=== PATIENT | male | born 1945 | race Asian ===

== ENCOUNTER 2020-03-20 16:42 | Inpatient (IN) ==
[2020-03-20 17:25] LABS: Basophils % 0.3 %; Hematocrit 46.2 % (37.5-50.1); Hemoglobin 14.9 g/dL (12.9-16.9); Immature Granulocytes % 0.3 % (0-4); Lymphocytes # 0.4 K/mcL (0.6-4.6); Lymphocytes % 11.5 %; Mean Corpuscular HGB Conc 32.3 g/dL (31.6-35.5); Mean Corpuscular Hemoglobin 27.7 pg (28.0-33.3); Mean Platelet Volume 10.2 fL (9.4-12.4); Monocytes # 0.3 K/mcL (0.0-1.3); Monocytes % 10.2 %; Neutrophils # 2.5 K/mcL (1.6-8.9); Platelet Count 230 K/mcL (140-400); Red Blood Count 5.37 M/mcL (4.19-5.50); Red Cell Distribution Width 12.8 % (11.5-14.5); Segmented Neutrophils % 77.7 %; White Blood Count 3.2 K/mcL (4.3-11.1)
[2020-03-20 17:35] LABS: VBG HCO3 24 mEq/L (21-27); VBG PCO2 42 mmHg (41-51); VBG PH 7.36 pH Units (7.32-7.42); VBG PO2 27 mmHg (25-50)
[2020-03-20] MEDS ORDERED: Dexamethasone 4 MG/ML VIAL IVP ONE (17:51)
[2020-03-20 18:01] LABS: BUN/Creatinine Ratio 15 (6-26); Blood Urea Nitrogen 17 mg/dL (8-23); Calcium 9.1 mg/dL (8.6-10.3); Carbon Dioxide 23 mEq/L (23-29); Chloride 95 mEq/L (98-107); Glucose 267 mg/dL (70-105); Osmolality,Calculated 281 (280-300); Potassium 4.2 mEq/L (3.5-5.1); Sodium 130 mEq/L (136-145); eGFR For African Americans > 60 (> 60); eGFR For Non-African Americans > 60 (> 60)
[2020-03-20 18:02] LABS: Troponin I < 0.03 ng/mL (< 0.04)
[2020-03-20] MEDS ORDERED: Naloxone 0.4 MG/ML INJ IVP PRN (18:36)
[2020-03-20] MEDS ORDERED: D5% in Water 1,000 ML IVC PRN (18:39)
[2020-03-20] MEDS ORDERED: Dextrose Gel 15 GM/37.5 ML TUBE PO PRN ×2 (18:39)
[2020-03-20] MEDS ORDERED: *HR* Dextrose 50 % in Water (Vial) 50 ML VIAL IVP PRN (18:39)
[2020-03-20] MEDS ORDERED: Ipratropium 1 PUFF INHALER IH PRN (18:56)
[2020-03-20 19:39] LABS: INR 1.4; Prothrombin Time 16.4 Seconds (9.4-12.1)
[2020-03-20 19:53] LABS: Alanine Aminotransferase 27 Units/L (7-52); Albumin 3.9 g/dL (3.5-5.7); Alkaline Phosphatase 62 Units/L (34-104); Aspartate Amino Transferase 41 Units/L (13-39); Bilirubin,Direct 0.1 mg/dL (0.0-0.2); Bilirubin,Indirect 0.4 mg/dL (0.0-1.0); Bilirubin,Total 0.5 mg/dL (0.3-1.0); Total Protein 7.9 g/dL (6.4-8.9)
[2020-03-20 20:10] LABS: Ferritin 1046 ng/mL (20-250)
[2020-03-20 20:45] LABS: C-Reactive Protein 143 mg/L (Less than 10)
[2020-03-20] MEDS: Insulin LISPRO 300 UNITS/3 ML VIAL SQ SCH (21:16)
[2020-03-20] MEDS ORDERED: Remdesivir 200 MG in 0.9 % Sodium Chloride 100 ML IVPB ONE (23:15)
[2020-03-21] MEDS ORDERED: 0.9 % Sodium Chloride 250 ML ONE (01:30)
[2020-03-21] MEDS: *HR* Enoxaparin 40 MG/0.4 ML SYRINGE SQ SCH (05:33)
[2020-03-21 05:59] LABS: INR 1.3; Prothrombin Time 15.3 Seconds (9.4-12.1)
[2020-03-21 06:00] LABS: Hematocrit 41.3 % (37.5-50.1); Hemoglobin 13.4 g/dL (12.9-16.9); Lymphocytes # 0.3 K/mcL (0.6-4.6); Lymphocytes % 11.3 %; Mean Corpuscular HGB Conc 32.4 g/dL (31.6-35.5); Mean Corpuscular Hemoglobin 27.8 pg (28.0-33.3); Mean Corpuscular Volume 85.7 fL (83.0-100.0); Mean Platelet Volume 10.2 fL (9.4-12.4); Monocytes # 0.3 K/mcL (0.0-1.3); Monocytes % 10.3 %; Neutrophils # 2.3 K/mcL (1.6-8.9); Platelet Count 210 K/mcL (140-400); Red Blood Count 4.82 M/mcL (4.19-5.50); Red Cell Distribution Width 12.9 % (11.5-14.5); Segmented Neutrophils % 78.4 %; White Blood Count 2.9 K/mcL (4.3-11.1)
[2020-03-21 06:17] LABS: Alanine Aminotransferase 22 Units/L (7-52); Albumin 3.6 g/dL (3.5-5.7); Alkaline Phosphatase 55 Units/L (34-104); Aspartate Amino Transferase 27 Units/L (13-39); BUN/Creatinine Ratio 20 (6-26); Bilirubin,Total 0.4 mg/dL (0.3-1.0); Blood Urea Nitrogen 21 mg/dL (8-23); Calcium 8.6 mg/dL (8.6-10.3); Carbon Dioxide 20 mEq/L (23-29); Chloride 99 mEq/L (98-107); Globulin 3.5 g/dL (2.4-3.5); Glucose 330 mg/dL (70-105); Osmolality,Calculated 286 (280-300); Potassium 4.1 mEq/L (3.5-5.1); Sodium 130 mEq/L (136-145); Total Protein 7.1 g/dL (6.4-8.9); eGFR For African Americans > 60 (> 60); eGFR For Non-African Americans > 60 (> 60)
[2020-03-21] MEDS: Azithromycin 500 MG in 0.9 % Sodium Chloride 250 ML IVPB SCH (08:59)
[2020-03-21] MEDS: Metoprolol XL (24 HR) Succ 50 MG TAB.ER.24H PO SCH (08:59)
[2020-03-21] MEDS ORDERED: Dexamethasone 4 MG/ML VIAL IVP SCH (09:00)
[2020-03-21] MEDS: Insulin LISPRO 300 UNITS/3 ML VIAL SQ SCH ×4 (09:54→21:32)
[2020-03-21] MEDS: Famotidine 20 MG TABLET PO SCH (17:22)
[2020-03-21] MEDS: rOPINIRole 1 MG TABLET PO SCH (21:31)
[2020-03-21] MEDS: Furosemide 40 MG/4 ML VIAL IVP SCH (21:31)
[2020-03-21] MEDS: Remdesivir 100 MG in 0.9 % Sodium Chloride 100 ML IVPB SCH (21:31)
[2020-03-22] MEDS: CLEAR EYES NATURAL TEARS 15 ML BOTTLE BOTH EYES SCH ×5 (00:04→20:09)
[2020-03-22] MEDS: *HR* Enoxaparin 40 MG/0.4 ML SYRINGE SQ SCH (05:09)
[2020-03-22 06:17] LABS: Hematocrit 43.7 % (37.5-50.1); Hemoglobin 14.1 g/dL (12.9-16.9); Immature Granulocytes % 0.4 % (0-4); Lymphocytes # 0.5 K/mcL (0.6-4.6); Lymphocytes % 6.7 %; Mean Corpuscular HGB Conc 32.3 g/dL (31.6-35.5); Mean Corpuscular Hemoglobin 27.8 pg (28.0-33.3); Mean Platelet Volume 10.5 fL (9.4-12.4); Monocytes # 0.6 K/mcL (0.0-1.3); Monocytes % 8.4 %; Neutrophils # 5.9 K/mcL (1.6-8.9); Platelet Count 260 K/mcL (140-400); Red Blood Count 5.08 M/mcL (4.19-5.50); Segmented Neutrophils % 84.5 %
[2020-03-22 06:26] LABS: INR 1.2; Prothrombin Time 14.3 Seconds (9.4-12.1)
[2020-03-22 08:16] LABS: BUN/Creatinine Ratio 31 (6-26); Blood Urea Nitrogen 33 mg/dL (8-23); Calcium 8.9 mg/dL (8.6-10.3); Carbon Dioxide 24 mEq/L (23-29); Chloride 97 mEq/L (98-107); Glucose 312 mg/dL (70-105); Magnesium 2.1 mg/dL (1.6-2.6); Osmolality,Calculated 293 (280-300); Potassium 4.3 mEq/L (3.5-5.1); Sodium 132 mEq/L (136-145); eGFR For African Americans > 60 (> 60); eGFR For Non-African Americans > 60 (> 60)
[2020-03-22] MEDS: Spironolactone 25 MG TABLET PO SCH (08:58)
[2020-03-22] MEDS: Famotidine 20 MG TABLET PO SCH (08:58)
[2020-03-22] MEDS: Metoprolol XL (24 HR) Succ 50 MG TAB.ER.24H PO SCH (08:58)
[2020-03-22] MEDS: Furosemide 40 MG/4 ML VIAL IVP SCH ×2 (09:00→20:09)
[2020-03-22] MEDS ORDERED: Dexamethasone 4 MG/ML VIAL IVP SCH (09:00)
[2020-03-22] MEDS: Insulin LISPRO 300 UNITS/3 ML VIAL SQ SCH ×4 (09:01→20:09)
[2020-03-22] MEDS: Azithromycin 500 MG in 0.9 % Sodium Chloride 250 ML IVPB SCH (09:12)
[2020-03-22 09:57] LABS: Estimated Average Glucose 209 mg/dl; Hemoglobin A1C 8.9 %
[2020-03-22] MEDS ORDERED: Sennosides/Docusate Sodium TABLET PO ONE (11:29)
[2020-03-22 11:58] LABS: Alanine Aminotransferase 32 Units/L (7-52); Albumin 3.5 g/dL (3.5-5.7); Alkaline Phosphatase 55 Units/L (34-104); Aspartate Amino Transferase 36 Units/L (13-39); Bilirubin,Direct 0.2 mg/dL (0.0-0.2); Bilirubin,Indirect 0.2 mg/dL (0.0-1.0); Bilirubin,Total 0.4 mg/dL (0.3-1.0); Globulin 3.6 g/dL (2.4-3.5); Total Protein 7.1 g/dL (6.4-8.9)
[2020-03-22] MEDS ORDERED: Dexamethasone 4 MG/ML VIAL IVP ONE (15:06)
[2020-03-22] MEDS ORDERED: *HR* Heparin 5,000 UNIT/ML VIAL IVP PRN ×2 (18:04)
[2020-03-22] MEDS ORDERED: *HR* Heparin 5,000 UNIT/ML VIAL IVP ONE (18:04)
[2020-03-22 18:49] LABS: Hematocrit 43.5 % (37.5-50.1); Hemoglobin 14.1 g/dL (12.9-16.9); Mean Corpuscular HGB Conc 32.4 g/dL (31.6-35.5); Mean Corpuscular Volume 86.3 fL (83.0-100.0); Mean Platelet Volume 10.6 fL (9.4-12.4); Platelet Count 280 K/mcL (140-400); Red Blood Count 5.04 M/mcL (4.19-5.50); Red Cell Distribution Width 13.1 % (11.5-14.5); White Blood Count 7.9 K/mcL (4.3-11.1)
[2020-03-22 18:52] LABS: Heparin anti-factor XA UFH 0.05 IU/mL (0.30-0.70)
[2020-03-22 18:53] LABS: INR 1.2
[2020-03-22] MEDS: Heparin 25,000UNIT/250ML 1/2NS 25,000 UNIT/250 ML IV.SOLN IVC SCH (20:07)
[2020-03-22] MEDS: rOPINIRole 1 MG TABLET PO SCH (20:10)
[2020-03-22] MEDS: Remdesivir 100 MG in 0.9 % Sodium Chloride 100 ML IVPB SCH (21:13)
[2020-03-23 02:49] LABS: Basophils % 0.1 %; Hematocrit 41.9 % (37.5-50.1); Immature Granulocytes % 0.3 % (0-4); Lymphocytes # 0.4 K/mcL (0.6-4.6); Lymphocytes % 3.7 %; Mean Corpuscular HGB Conc 33.4 g/dL (31.6-35.5); Mean Corpuscular Hemoglobin 28.3 pg (28.0-33.3); Mean Corpuscular Volume 84.6 fL (83.0-100.0); Mean Platelet Volume 10.7 fL (9.4-12.4); Monocytes # 0.6 K/mcL (0.0-1.3); Monocytes % 6.7 %; Neutrophils # 8.6 K/mcL (1.6-8.9); Platelet Count 282 K/mcL (140-400); Red Blood Count 4.95 M/mcL (4.19-5.50); Red Cell Distribution Width 12.9 % (11.5-14.5); Segmented Neutrophils % 89.2 %; White Blood Count 9.6 K/mcL (4.3-11.1)
[2020-03-23 03:00] LABS: INR 1.3; Prothrombin Time 15.2 Seconds (9.4-12.1)
[2020-03-23 03:01] LABS: Albumin 3.4 g/dL (3.5-5.7); Bilirubin,Direct 0.2 mg/dL (0.0-0.2); Bilirubin,Indirect 0.2 mg/dL (0.0-1.0); Bilirubin,Total 0.4 mg/dL (0.3-1.0); Globulin 3.4 g/dL (2.4-3.5); Total Protein 6.8 g/dL (6.4-8.9)
[2020-03-23 03:02] LABS: BUN/Creatinine Ratio 38 (6-26); Blood Urea Nitrogen 38 mg/dL (8-23); Calcium 8.6 mg/dL (8.6-10.3); Carbon Dioxide 23 mEq/L (23-29); Chloride 99 mEq/L (98-107); Glucose 240 mg/dL (70-105); Osmolality,Calculated 293 (280-300); Sodium 133 mEq/L (136-145); eGFR For African Americans > 60 (> 60); eGFR For Non-African Americans > 60 (> 60)
[2020-03-23] MEDS: Metoprolol XL (24 HR) Succ 50 MG TAB.ER.24H PO SCH (08:08)
[2020-03-23] MEDS: Dexamethasone 4 MG/ML VIAL IVP SCH (08:08)
[2020-03-23] MEDS: Spironolactone 25 MG TABLET PO SCH (08:08)
[2020-03-23] MEDS: Furosemide 40 MG/4 ML VIAL IVP SCH ×2 (08:09→21:26)
[2020-03-23] MEDS: Pantoprazole 40 MG VIAL IVP SCH (08:09)
[2020-03-23] MEDS: Insulin LISPRO 300 UNITS/3 ML VIAL SQ SCH ×4 (08:09→21:32)
[2020-03-23] MEDS: CLEAR EYES NATURAL TEARS 15 ML BOTTLE BOTH EYES SCH ×4 (08:10→22:48)
[2020-03-23] MEDS: Azithromycin 500 MG in 0.9 % Sodium Chloride 250 ML IVPB SCH (08:21)
[2020-03-23] MEDS ORDERED: Famotidine 20 MG TABLET PO SCH (09:00)
[2020-03-23] MEDS: Insulin DETEMIR 100 UNIT/ML X5UNITS SUBQ SCH (12:30)
[2020-03-23] MEDS: Remdesivir 100 MG in 0.9 % Sodium Chloride 100 ML IVPB SCH (21:27)
[2020-03-23] MEDS: rOPINIRole 1 MG TABLET PO SCH (21:27)
[2020-03-24 02:01] LABS: Basophils % 0.1 %; Hematocrit 45.3 % (37.5-50.1); Hemoglobin 14.7 g/dL (12.9-16.9); Immature Granulocytes % 0.5 % (0-4); Lymphocytes # 0.4 K/mcL (0.6-4.6); Lymphocytes % 3.1 %; Mean Corpuscular HGB Conc 32.5 g/dL (31.6-35.5); Mean Corpuscular Hemoglobin 27.6 pg (28.0-33.3); Mean Platelet Volume 10.3 fL (9.4-12.4); Monocytes # 0.7 K/mcL (0.0-1.3); Monocytes % 5.7 %; Neutrophils # 10.9 K/mcL (1.6-8.9); Platelet Count 294 K/mcL (140-400); Red Blood Count 5.33 M/mcL (4.19-5.50); Red Cell Distribution Width 12.9 % (11.5-14.5); Segmented Neutrophils % 90.6 %
[2020-03-24 02:08] LABS: Fibrinogen 652 mg/dL (169-393); INR 1.3; Prothrombin Time 14.9 Seconds (9.4-12.1)
[2020-03-24] MEDS: Heparin 25,000UNIT/250ML 1/2NS 25,000 UNIT/250 ML IV.SOLN IVC SCH (02:13)
[2020-03-24 02:21] LABS: Albumin 3.6 g/dL (3.5-5.7); Albumin/Globulin Ratio 0.9 (1.1-2.2); Bilirubin,Direct 0.2 mg/dL (0.0-0.2); Bilirubin,Indirect 0.3 mg/dL (0.0-1.0); Bilirubin,Total 0.5 mg/dL (0.3-1.0); Globulin 3.8 g/dL (2.4-3.5); Total Protein 7.4 g/dL (6.4-8.9)
[2020-03-24 02:23] LABS: BUN/Creatinine Ratio 39 (6-26); Blood Urea Nitrogen 42 mg/dL (8-23); Calcium 8.7 mg/dL (8.6-10.3); Carbon Dioxide 26 mEq/L (23-29); Chloride 94 mEq/L (98-107); Glucose 342 mg/dL (70-105); Magnesium 2.1 mg/dL (1.6-2.6); Osmolality,Calculated 300 (280-300); Potassium 3.7 mEq/L (3.5-5.1); Sodium 133 mEq/L (136-145); eGFR For African Americans > 60 (> 60); eGFR For Non-African Americans > 60 (> 60)
[2020-03-24 02:33] LABS: D-Dimer 653 ng/mLFEU (0-500)
[2020-03-24] MEDS ORDERED: Azithromycin 250 MG TABLET PO SCH (09:00)
[2020-03-24] MEDS: Spironolactone 25 MG TABLET PO SCH (10:05)
[2020-03-24] MEDS: Metoprolol XL (24 HR) Succ 50 MG TAB.ER.24H PO SCH (10:05)
[2020-03-24] MEDS: Insulin DETEMIR 100 UNIT/ML X5UNITS SUBQ SCH (10:06)
[2020-03-24] MEDS: Pantoprazole 40 MG VIAL IVP SCH (10:06)
[2020-03-24] MEDS: Furosemide 40 MG/4 ML VIAL IVP SCH (10:06)
[2020-03-24] MEDS: Dexamethasone 4 MG/ML VIAL IVP SCH (10:06)
[2020-03-24] MEDS: CLEAR EYES NATURAL TEARS 15 ML BOTTLE BOTH EYES SCH ×2 (10:07→13:19)
[2020-03-24] MEDS: Insulin LISPRO 300 UNITS/3 ML VIAL SQ SCH ×2 (10:07→13:19)
[2020-03-24 12:48] VITALS: BP 130/72
[2020-03-24] MEDS ORDERED: *HR* Midazolam HCl 5 MG/5 ML VIAL IVP ONE (18:02)
[2020-03-24] MEDS ORDERED: *HR* Propofol 200 MG/20 ML VIAL IVP ONE (18:02)
[2020-03-24] MEDS ORDERED: *HR* Etomidate 20 MG/10 ML AMPUL IVP ONE (18:02)
[2020-03-27] MEDS ORDERED: Dexamethasone 4 MG/ML VIAL IVP SCH (09:00)
== END 2020-03-24 18:03 | disposition short-term general hospital (02) | DRG 871 ==
LOC: EMEROOARM 16:42 → SUATTDRO 19:12 → 2NENU 19:12
PROVIDERS: ADMIT Internal Medicine; ATTEND Pharmacist